=== PATIENT | female | born 1970 | race Caucasian/White ===

== ENCOUNTER → 2023-05-22 10:35 | Outpatient (BNVA) | payer MEDICARE, MEDICAID, SELFPAY | PROVIDERS: PCP Family Medicine; Visit Provider Internal Medicine Rheumatology | DX: Z79.899 Other long term (current) drug therapy (principal); M19.90 Unspecified osteoarthritis, unspecified site; K74.3 Primary biliary cirrhosis; R10.9 Unspecified abdominal pain; G89.29 Other chronic pain; Z11.59 Encounter for screening for other viral diseases; R76.8 Other specified abnormal immunological findings in serum; Z11.1 Encounter for screening for respiratory tuberculosis; M79.7 Fibromyalgia | CPT/HCPCS: 36415; 80076; 82306; 82565; 82977; 85025; 85651; 86140; 86160; 86162; 86200; 86235; 86255; 86376; 86431; 86480; 86704; 86800; 86803; 87340; 99204 ==